=== PATIENT | female | born 1945 | race Caucasian/White ===

== ENCOUNTER 2017-09-21 23:43 | Emergency (ER) | payer MEDICARE ==
[~2017-09-21] VITALS: Ht 154.9 cm; Wt 48.1 kg
[2017-09-22] VITALS: BP 144/72
[2017-09-22 02:00] VITALS: BP 145/68
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
[2017-09-22] MEDS ORDERED: TYLENOL EXTRA500 MG ORAL (03:06)
[2017-09-22 04:00] VITALS: BP 145/80
[2017-09-22 05:27] VITALS: BP 140/70
[2017-09-22 05:45] VITALS: BP 140/70
--- NOTE | 2017-09-22 10:13 | Diagnostic Imaging Report ---
Indication: Pain, status post fall approximately 5 hours ago Technique: Multiple views of the right ribs Comparison: none Findings: No acute rib fractures are demonstrated. No pneumothorax. Incidental note is made of chronic changes of the right humeral head, consistent with old bone infarct. There is a bone island within the glenoid. Bones are osteoporotic Impression: No acute bony trauma or pneumothorax Incidental findings as noted This agrees with the preliminary interpretation provided overnight by [facility].
--- NOTE | 2017-09-22 10:14 | Diagnostic Imaging Report ---
Indication: Pain, status post fall approximately 5 hours previous Technique: 3 views of the right shoulder Comparison: none Findings: Sclerotic changes of the humeral head indicating likely prior bone infarct. No acute fractures. No dislocation. The bones are osteoporotic Impression: No acute bony trauma. Findings as noted
== END 2017-09-22 05:45 | disposition home or self-care (01) ==
LOC: EDBD 23:43 → EMR 09-22 00:05
DX: S20.211A Contusion of right front wall of thorax, initial encounter (principal); V43.52XA Car driver injured in collision with other type car in traffic accident, initial encounter; Y92.410 Unspecified street and highway as the place of occurrence of the external cause; Z85.3 Personal history of malignant neoplasm of breast
CPT/HCPCS: 99284